=== PATIENT | male | born 1950 | race Caucasian/White ===

== ENCOUNTER → 2017-10-24 | Outpatient (CLI) | payer OTHER, BC ==
[~2017-10-24] MED LIST: ACYCLOVIR 400400 MG PO; ASPIR-LOW81 MG PO; CRESTOR20 MG PO; CYMBALTA30 MG PO; DILAUDID 2 MG TA2 MG PO; DURAGESIC25 MCG/HR TRANSDERM; FLOMAX0.4 MG PO; LIDODERM1 EACH TRANSDERM; MIRALAX17 G1 PO; VITAMIN D2000 UNIT PO
--- NOTE | ~2017-10-24 | EKG ---
[address] [address] ELECTROCARDIOGRAM REPORT Name: ERIK DAVIS Room #: [facility]#: [id number] Admission: 10/24/17 Attend Phys: Silvino King MD Discharge: Date of : 50 Report #: [id number] THIS REPORT FOR: //name// [facility] Test Date: 2017-10-24 Test Time: 13:54:28 Pat Name: ERIK DAVIS Department: Room: Gender: Screen Operator: DAQUAN : 1950 Requested By: Silvino King Order Number: [id number] MD: Efren Mcdaniel Measurements Intervals [place] Rate: 79 P: 41 OR: 160 QRS: -4 QRSD: 99 T: 11 QT: 390 QTc: 448 Interpretive Statements Sinus rhythm Normal tracing No previous ECG available for comparison Electronically Signed On 10-25-2017 7:54:07 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
== END | disposition home or self-care (01) ==
LOC: LITH 12:48
DX: N20.0 Calculus of kidney (principal)